=== PATIENT | female | born 1970 | race Caucasian/White ===

== ENCOUNTER 2017-10-26 13:05 | Emergency (ER) | payer OTHER ==
[~2017-10-26] VITALS: Ht 165.1 cm; Wt 59.0 kg
[2017-10-26 14:58] LABS: ABSOLUTE BASOPHIL COUNT 0 /CUMM (0.0-0.2); ABSOLUTE EOSINOPHIL COUNT 0.1 /CUMM (0.0-0.7); ABSOLUTE GRANULOCYTE CT 3.3 /CUMM (1.4-6.5); ABSOLUTE LYMPH COUNT 1.4 /CUMM (1.2-3.4); ABSOLUTE MONOCYTE COUNT 0.4 /CUMM (0.10-0.60); BASOPHIL % 0.7 % (0.0-2.0); EOSINOPHIL % 2.5 % (0-5); GRANULOCYTE % 61.7 % (42.2-75.2); HEMATOCRIT 39.1 % (37-47); MEAN CORPUSCULAR HGB 31.4 PG (27.0-31.0); MEAN CORPUSCULAR HGB CONC 33.6 G/DL (33.0-37.0); MEAN CORPUSCULAR VOLUME 93.6 FL (81.0-99.0); MEAN PLATELET VOLUME 11.8 FL (7.4-10.4); PLATELET COUNT 179 /CUMM (130-400); RBC DISTRIBUTION WIDTH 15.1 % (11.5-14.5); RED BLOOD CELL CT 4.18 /CUMM (4.20-5.40); WHITE BLOOD CELL COUNT 5.3 /CUMM (4.8-10.8)
--- NOTE | 2017-10-26 15:48 | ED GI/GU/ABDOMINAL COMPLAINT ---
History of Present Illness General Chief Complaint: Abdominal Pain/Flank Pain Stated Complaint: SIB MED EXPRESS FOR ABD PAIN Source: patient Exam Limitations: no limitations Vital Signs & Intake/Output Vital Signs & Intake/Output Vital Signs Date Time Temp Pulse Resp B/P B/P Pulse O2 O2 Flow FiO2 Mean Ox Delivery Rate 10/26 1952 98.0 72 20 120/78 98 Room Air 10/26 1706 98.2 56 18 118/56 99 Room Air 10/26 1611 97 10/26 1319 97.4 68 20 118/75 97 Room Air Allergies Coded Allergies: No Known Allergies (10/26/17) Reconcile Medications No Known Home Medications Triage Note: RLQ PAIN X 1 WEEK THAT BECAME EXCRUCIATING LAST NIGHT. + NAUSEA. PT HAS HX OF KIDNEY STONES BUT STATES THIS FEELS DIFFERENT Triage Nurses Notes Reviewed? yes LMP (ages 10-50): unknown ? N Is pt currently ? No Onset: Gradual Duration: week(s): (1), constant, continues in ED, getting worse Timing: single episode today Quality/Severity: cramping Severity Numbers: 8 Location: right lower quadrant Radiation: no radiation Activities at Onset: none Prior Abdominal Problems: none Past Sexual History: Unobtainable at this time No Modifying Factors: none Modifying Factors: Worsens With: movement, palpation. Associated Symptoms: abdominal pain, CONSTIPATION HPI: 47-year-old female with no past medical history presents for evaluation of abdominal pain. Patient states that she first noticed symptoms about one week ago and they've been getting worse. The pain is located in the right lower quadrant and does not radiate. She describes the pain as sharp pain. Patient states that she has been taking large amounts of Imodium in order to prevent herself from having bowel movements while at work. She states that she is had been taking Imodium daily for months. She stopped taking it several days before the symptoms started. No diarrhea. She states that she has been constipated recently and has not had a bowel movement in 3 days. No fevers, urinary symptoms, vaginal discharge, chest pain, shortness of breath or any other associated symptoms. No recent surgeries. Past History Travel History Traveled to [place] past 21 day No Medical History Any Pertinent Medical History? see below for history Surgical History Surgical History: non-contributory Psychosocial History What is your primary language Eritrean Tobacco Use: Never used ETOH Use: occasional use Illicit Drug Use: denies illicit drug use Family History Hx Contributory? No Review of Systems Review of Systems Constitutional: Reports: no symptoms. EENTM: Reports: no symptoms. Respiratory: Reports: no symptoms. Cardiovascular: Reports: no symptoms. GI: Reports: see HPI, abdominal pain, constipation. Genitourinary: Reports: no symptoms. Musculoskeletal: Reports: no symptoms. Skin: Reports: no symptoms. Neurological/Psychological: Reports: no symptoms. Hematologic/Endocrine: Reports: no symptoms. Immunologic/Allergic: Reports: no symptoms. All Other Systems: Reviewed and Negative Physical Exam Physical Exam General Appearance: well developed/nourished, no apparent distress, alert, awake Head: atraumatic, normal appearance Eyes: Bilateral: normal appearance, PERRL, EOMI. Ears, Nose, Throat, Mouth: hearing grossly normal, moist mucous membrane Neck: normal inspection, supple, full range of motion Respiratory: normal breath sounds, chest non-tender, no respiratory distress, lungs clear Cardiovascular: regular rate/rhythm, normal peripheral pulses Peripheral Pulses: 2+ radial (R), 2+ radial (L) Gastrointestinal: normal bowel sounds, soft, no organomegaly, tenderness (RLQ) Back: normal inspection, no vertebral tenderness Extremities: normal range of motion Neurologic/Psych: no motor/sensory deficits, awake, alert, oriented x 3, normal gait Skin: intact, normal color, warm/dry Core Measures ACS in differential dx? No Sepsis Present: No Sepsis Focused Exam Completed? No Progress Differential Diagnosis: appendicitis, biliary colic, bowel obstruction, cholecystitis, diverticulitis, ovarian cyst, SBO, UTI/pyelo Plan of Care: Orders Procedure Date/time Status Add-on Test (ER Only) 10/26 1818 Active Add-on Test (ER Only) 10/26 1635 Active Add-on Test (ER Only) 10/26 1630 Active ACETOMINOPHEN 10/26 1426 Active PARTIAL THROMBOPLASTIN TIME 10/26 1426 Complete PHOSPHORUS 10/26 1426 Active MONOSPOT TEST 10/26 1426 Complete HEPATITIS PANEL 10/26 1426 Active ETHANOL 10/26 1426 Active URINE 10/26 1317 Complete URINALYSIS 10/26 1317 Complete LIPASE 10/26 1317 Active C-REACTIVE PROTEIN 10/26 1317 Active COMPREHENSIVE METABOLIC PANEL 10/26 1317 Active CBC WITHOUT DIFFERENTIAL 10/26 1317 Complete Laboratory Tests 10/26/17 1450: Urine Color YEL, Urine Clarity CLEAR, Urine pH 7.0, Ur Specific Mead 1.020, Urine Protein NEG, Urine Ketones NEG, Urine Nitrite NEG, Urine Bilirubin NEG, Urine Urobilinogen 1.0, Ur Leukocyte Esterase NEG, Ur Microscopic EXAM NOT REQUIRED, Urine Hemoglobin NEG, Urine Glucose NEG, Urine Test NEGATIVE 10/26/17 1426: Infectious Fentress Titer NEGATIVE 10/26/17 1426: Anion Gap 13, Estimated GFR > 60, BUN/Creatinine Ratio 20.0, Glucose 93, Calcium 9.8, Phosphorus 4.6 H, Total Bilirubin 1.1, AST 642 H, ALT 960 H, Alkaline Phosphatase 143 H, C-Reactive Prot, Quant < 0.5, Total Protein 7.6, Albumin 4.5 , Globulin 3.1, Albumin/Globulin Ratio 1.5, Lipase 86, APTT 28, CBC w Diff NO MAN DIFF REQ, RBC 4.18 L, MCV 93.6, MCH 31.4 H, RDW 15.1 H, MPV 11.8 H, Gran % 61.7, Lymphocytes % 27.1, Monocytes % 8.0, Eosinophils % 2.5, Basophils % 0.7, Absolute Granulocytes 3.3, Absolute Lymphocytes 1.4, Absolute Monocytes 0.4, Absolute Eosinophils 0.1, Absolute Basophils 0, PUBS MCHC 33.6, Hepatitis A IgM Ab Pending, Hep Bs Antigen Pending, Hep B Core IgM Ab Conf Pending, Hepatitis C Antibody Pending, Acetaminophen < 10.0 L, Serum Alcohol < 10.0 Patient seen and evaluated. She's been having abdominal pain for the past week. She reports excessive use of Imodium and stopped using it right before the pain started. Suspect that her symptoms maybe related to withdrawal of the Imodium. Additionally she has been constipated recently probably also 2. Her CT scan is not showing any acute findings. She does not have an elevated white blood cell count. Patient does have elevated liver function tests fairly significantly. She denies any significant alcohol use. Hepatitis panel was added on. Fent[place] is negative. Ultrasound was ordered of the right upper quadrant with did not show any acute findings. Patient will be referred to GI for further evaluation and treatment. Advised her to avoid Imodium. Tylenol ibuprofen for pain. Advised to take an [id number] stool softener. Discussed return precautions in detail patient is nontoxic-appearing and agrees the plan. Diagnostic Imaging: Viewed by Me: CT Scan. Discussed w/RAD: CT Scan. Radiology Impression: PATIENT: TRENT GAMA PRESENT AGE: 47 PATIENT ACCOUNT NO: [id number] : 72 LOCATION: [facility] ORDERING PHYSICIAN: Wilder UP SERVICE DATE: 10/26/17 EXAM TYPE: CAT - CT ABD & PELVIS W IV CONTRAST EXAMINATION: CT ABDOMEN AND PELVIS WITH CONTRAST CLINICAL INFORMATION: Right lower quadrant pain. COMPARISON: None. TECHNIQUE: Contiguous axial thin section helical images of the abdomen and pelvis were performed following the administration of 95 mL of intravenous Optiray 320. The data set was reformatted in the coronal and sagittal planes and reviewed on an independent workstation. DLP: 264 mGy-cm. FINDINGS: The visualized lung bases are clear. The visualized portions of the heart are unremarkable. The liver is of normal size and attenuation without focal lesions nor intrahepatic biliary ductal dilation. A normal gallbladder is identified. There is no wall thickening or discernible pericholecystic fluid. The spleen, pancreas, adrenal glands are unremarkable. Both kidneys are of normal size and attenuation without hydronephrosis. There is a 6 mm nonobstructive calculus within the upper pole of the right kidney. Following the administration of IV contrast, prompt symmetric nephrograms are displayed. There is no abdominal free fluid. There is neither mesenteric nor retroperitoneal lymphadenopathy. There are a few diverticula within the right hemicolon. A normal appendix is identified. Otherwise, unremarkable unopacified loops of small and large bowel are identified. There is no pelvic free fluid. The urinary bladder is unremarkable. There is neither pelvic nor inguinal lymphadenopathy. Bone windows: Neither sclerotic nor lytic bone lesions are identified. There are bilateral L5 pars defects with mild anterior displacement of L5 in relation to S1. There is mild disc height loss at L4/L5. IMPRESSION: No evidence for acute abdominal or pelvic inflammatory or infectious processes. Bilateral L5 pars defects with grade 1 anterolisthesis of L5 in relation to S1. DICTATED BY: Milan Morocho MD DATE/TIME DICTATED:10/26/171657 TANK CHARGER:ANNALISE DATE/TIME TRANSCRIBED:10/26/171657 CONFIDENTIAL, DO NOT COPY WITHOUT APPROPRIATE AUTHORIZATION., PATIENT: TRENT GAMA PRESENT AGE: 47 PATIENT ACCOUNT NO: [id number] : 72 LOCATION: [facility] ORDERING PHYSICIAN: iWlder UP SERVICE DATE: 10/26/17 EXAM TYPE: US - US-LIMITED ABDOMEN EXAMINATION: US ABDOMEN LIMITED CLINICAL INFORMATION: Elevated LFTs. Right upper quadrant pain.. COMPARISON: CT of the abdomen and pelvis from earlier the same day. TECHNIQUE: Real-time imaging of the right upper quadrant abdominal viscera. FINDINGS: PANCREAS: The pancreas is largely obscured by overlying bowel gas. LIVER: Normal. The liver demonstrates normal size, contour and echogenicity. No focal lesion or intrahepatic biliary duct dilatation. GALLBLADDER: Normal. The gallbladder is physiologically distended without evidence of stones, sludge, polyps, wall thickening or pericholecystic fluid. The patient was not NPO, and the gallbladder is partially contracted. COMMON BILE DUCT: Normal in caliber measuring 0.5 cm in diameter. RIGHT KIDNEY: Normal. No hydronephrosis. No renal calculi or focal parenchymal lesions. The kidney measures 9.9 cm in maximum dimension. The known nonobstructing stone in the upper pole is not well visualized sonographically. Please refer to the prior CT for details. FREE FLUID : None. IMPRESSION: Unremarkable right upper quadrant ultrasound. DICTATED BY: Ean Moura MD DATE/TIME DICTATED:10/26/171925 TANK CHARGER:ANNALISE DATE/TIME TRANSCRIBED:10/26/171925 CONFIDENTIAL, DO NOT COPY WITHOUT APPROPRIATE AUTHORIZATION. Initial ED EKG: none Departure Departure Disposition: HOME OR SELF CARE Condition: Stable Clinical Impression Primary Impression: Abdominal pain Qualifiers: Abdominal location: right lower quadrant Qualified Code: R10.31 - Right lower quadrant pain Referrals: Néstor OBRIEN,Valentin Bass Patient Has No Primary Care Dr (PCP/Family) Additional Instructions: Rest and drink plenty of fluids. Eat foods that are high in fiber. Take an [id number] stool softener. Follow-up with a deposition reporter and primary care doctor. Do not take any more Imodium. Avoid alcohol and Tylenol. Monitor symptoms and return to the emergency department with any concerns. Departure Forms: Customer Survey General Discharge Information Prescriptions: Current Visit Scripts No Known Home Medications
[2017-10-26 16:59] LABS: PTT 28 SEC (25-37)
--- NOTE | 2017-10-26 17:04 | CT SCAN REPORT ---
EXAMINATION: CT ABDOMEN AND PELVIS WITH CONTRAST CLINICAL INFORMATION: Right lower quadrant pain. COMPARISON: None. TECHNIQUE: Contiguous axial thin section helical images of the abdomen and pelvis were performed following the administration of 95 mL of intravenous Optiray 320. The data set was reformatted in the coronal and sagittal planes and reviewed on an independent workstation. DLP: 264 mGy-cm. FINDINGS: The visualized lung bases are clear. The visualized portions of the heart are unremarkable. The liver is of normal size and attenuation without focal lesions nor intrahepatic biliary ductal dilation. A normal gallbladder is identified. There is no wall thickening or discernible pericholecystic fluid. The spleen, pancreas, adrenal glands are unremarkable. Both kidneys are of normal size and attenuation without hydronephrosis. There is a 6 mm nonobstructive calculus within the upper pole of the right kidney. Following the administration of IV contrast, prompt symmetric nephrograms are displayed. There is no abdominal free fluid. There is neither mesenteric nor retroperitoneal lymphadenopathy. There are a few diverticula within the right hemicolon. A normal appendix is identified. Otherwise, unremarkable unopacified loops of small and large bowel are identified. There is no pelvic free fluid. The urinary bladder is unremarkable. There is neither pelvic nor inguinal lymphadenopathy. Bone windows: Neither sclerotic nor lytic bone lesions are identified. There are bilateral L5 pars defects with mild anterior displacement of L5 in relation to S1. There is mild disc height loss at L4/L5. IMPRESSION: No evidence for acute abdominal or pelvic inflammatory or infectious processes. Bilateral L5 pars defects with grade 1 anterolisthesis of L5 in relation to S1.
--- NOTE | 2017-10-26 19:31 | ULTRASOUND REPORT ---
EXAMINATION: US ABDOMEN LIMITED CLINICAL INFORMATION: Elevated LFTs. Right upper quadrant pain.. COMPARISON: CT of the abdomen and pelvis from earlier the same day. TECHNIQUE: Real-time imaging of the right upper quadrant abdominal viscera. FINDINGS: PANCREAS: The pancreas is largely obscured by overlying bowel gas. LIVER: Normal. The liver demonstrates normal size, contour and echogenicity. No focal lesion or intrahepatic biliary duct dilatation. GALLBLADDER: Normal. The gallbladder is physiologically distended without evidence of stones, sludge, polyps, wall thickening or pericholecystic fluid. The patient was not NPO, and the gallbladder is partially contracted. COMMON BILE DUCT: Normal in caliber measuring 0.5 cm in diameter. RIGHT KIDNEY: Normal. No hydronephrosis. No renal calculi or focal parenchymal lesions. The kidney measures 9.9 cm in maximum dimension. The known nonobstructing stone in the upper pole is not well visualized sonographically. Please refer to the prior CT for details. FREE FLUID: None. IMPRESSION: Unremarkable right upper quadrant ultrasound.
[2017-10-26 19:53] VITALS: BP 120/78
== END 2017-10-26 19:54 ==
LOC: ERH 13:05
PROVIDERS: Physician Assistant Medical
DX: R10.31 Right lower quadrant pain (principal)
CPT/HCPCS: 74177; 81003; 81025; 96374; G0480; J1885